=== PATIENT | female | born 1970 | race Caucasian/White ===

== ENCOUNTER 2018-03-11 07:02 | Emergency (ER) | payer OTHER ==
[~2018-03-11] VITALS: Ht 165.1 cm; Wt 73.0 kg
[2018-03-11] MEDS ORDERED: BACITRACIN ZINC OINT UDPKT TOP ONE (07:45)
[2018-03-11] MEDS ORDERED: LIDOCAINE HCL/EPINEPHRINE 1%-EPI 1:100,000 20 ML VIAL INFIL ONE (07:45)
[2018-03-11 09:50] VITALS: BP 133/88
== END 2018-03-11 09:54 | disposition home or self-care (01) ==
LOC: ER 07:02
DX: S31.811A Laceration without foreign body of right buttock, initial encounter (principal); S50.311A Abrasion of right elbow, initial encounter; S60.811A Abrasion of right wrist, initial encounter; S80.212A Abrasion, left knee, initial encounter; S80.211A Abrasion, right knee, initial encounter; Y08.89XA Assault by other specified means, initial encounter; Y93.89 Activity, other specified; Y92.89 Other specified places as the place of occurrence of the external cause; Y99.8 Other external cause status
CPT/HCPCS: 12002; 99283; J3490